=== PATIENT | male | born 1985 | race Caucasian/White ===

== ENCOUNTER 2020-10-05 16:57 | Emergency (ER) | payer OTHER ==
[~2020-10-05] VITALS: Ht 180.3 cm; Wt 113.6 kg
[2020-10-05 17:51] LABS: BASO # 0.1 (0.02-0.10); EOS # 0.1 (0.04-0.40); EOS % 0.9 % (0.0-4.0); HEMATOCRIT 45.2 % (42.0-52.0); HEMOGLOBIN 15.9 g/dL (13.5-18.0); LYMPH# 1.7 (1.50-4.00); MEAN CELL VOLUME 85 fl (78-100); MEAN CORPUSCULAR HEMOGLOBIN 30 pg (27-31); MEAN CORPUSCULAR HGB CONC 35 g/dL (33-37); MEAN PLATELET VOLUME 10.1 fl (7.4-10.4); MONO # 0.7 (0.20-0.80); NEU # 7.2 (1.40-6.50); PLATELET COUNT 279 K/mm3 (130-400); RED BLOOD COUNT 5.33 M/mm3 (4.20-5.60); RED CELL DISTRIBUTION WIDTH 12.8 % (11.5-14.5); WHITE BLOOD COUNT 9.8 K/mm3 (4.8-10.8)
[2020-10-05 18:02] LABS: POTASSIUM 4.1 mmol/L (3.5-5.1)
[2020-10-05 18:03] LABS: CALCIUM 9.4 mg/dL (8.3-10.5)
[2020-10-05] MEDS ORDERED: SILVADENE11 TP (20:22)
[2020-10-05 21:10] VITALS: BP 127/82
== END 2020-10-05 21:10 | disposition home or self-care (01) ==
LOC: ED 16:57
PROVIDERS: Physician Assistant
DX: T20.26XA Burn of second degree of forehead and cheek, initial encounter (principal); T20.22XA Burn of second degree of lip(s), initial encounter; T20.24XA Burn of second degree of nose (septum), initial encounter; T26.01XA Burn of right eyelid and periocular area, initial encounter; X08.8XXA Exposure to other specified smoke, fire and flames, initial encounter; Y99.0 Civilian activity done for income or pay; Z23 Encounter for immunization
CPT/HCPCS: 90714

== ENCOUNTER 2021-06-04 06:31 | Emergency (ER) | payer BC ==
[~2021-06-04 06:31] MED LIST: SILVADENE11 TP
[2021-06-04 07:24] LABS: BASO # 0.01 (0.02-0.10); EOS # 0.03 (0.04-0.40); EOS % 0.9 % (0.0-4.0); HEMATOCRIT 45.3 % (42.0-52.0); HEMOGLOBIN 15.8 g/dL (13.5-18.0); MEAN CELL VOLUME 86 fl (78-100); MEAN CORPUSCULAR HEMOGLOBIN 30 pg (27-31); MEAN CORPUSCULAR HGB CONC 35 g/dL (33-37); MEAN PLATELET VOLUME 9.9 fl (7.4-10.4); MONO # 0.23 (0.20-0.80); NEU # 2.21 (1.40-6.50); PLATELET COUNT 152 K/mm3 (130-400); RED CELL DISTRIBUTION WIDTH 12.2 % (11.5-14.5); WHITE BLOOD COUNT 3.2 K/mm3 (4.8-10.8)
[2021-06-04 08:06] LABS: ALBUMIN 3.9 g/dL (3.5-5.0); SODIUM 136 mmol/L (136-145); TROPONIN-I < 0.03 ng/mL (<0.030)
[2021-06-04 08:07] LABS: CALCIUM 8.5 mg/dL (8.3-10.5)
[2021-06-04 08:08] LABS: GLUCOSE 170 mg/dL (75-110)
[2021-06-04 08:09] LABS: TOTAL PROTEIN 7.4 g/dL (6.4-8.3)
[2021-06-04 08:10] LABS: CARBON DIOXIDE 23 mmol/L (22-29); TOTAL BILIRUBIN 0.5 mg/dL (0.2-1.2)
[2021-06-04 08:14] LABS: AST-SGOT 46 U/L (5-34)
[2021-06-04 08:15] LABS: ALT/SGPT 60 U/L (0-55)
[2021-06-04 09:55] VITALS: BP 128/76
== END 2021-06-04 09:55 | disposition home or self-care (01) ==
LOC: ED 06:31
PROVIDERS: Family Medicine
DX: U07.1 COVID-19 (principal); E86.9 Volume depletion, unspecified; E11.9 Type 2 diabetes mellitus without complications
CPT/HCPCS: J7030